=== PATIENT | female | born 1950 | race Caucasian/White ===

== ENCOUNTER 2017-06-08 10:34 | Observation (INO) | payer SELFPAY ==
[2017-06-08] MEDS ORDERED: VALIUM PO ONE (11:37)
[2017-06-08 12:12] LABS: BASOPHILS # (AUTO) 0.1 X10^3/uL (0.0-0.1); BASOPHILS % (AUTO) 1.2 % (0.2-1.0); EOSINOPHILS # (AUTO) 0.3 x10^3/uL (0.0-0.2); EOSINOPHILS % (AUTO) 3.6 % (0.9-2.9); HEMATOCRIT 37.7 % (36.0-47.0); HEMOGLOBIN 12.7 g/dL (12.0-16.0); LYMPHOCYTES # (AUTO) 1.6 X10^3/uL (1.3-2.9); LYMPHOCYTES % (AUTO) 21.4 % (21.0-51.0); MEAN CORPUSCULAR HEMOGLOBIN 31.8 pg (27.0-34.0); MEAN CORPUSCULAR HGB CONC 33.7 g/dL (33.0-35.0); MEAN CORPUSCULAR VOLUME 94.4 fL (80.0-100.0); MEAN PLATELET VOLUME 8.8 fL (7.4-11.0); MONOCYTES # (AUTO) 0.7 x10^3/uL (0.3-0.8); MONOCYTES % (AUTO) 10.2 % (0.0-13.0); NEUTROPHILS # (AUTO) 4.6 x10^3/uL (2.2-4.8); NEUTROPHILS % (AUTO) 63.6 % (42.0-75.0); PLATELET COUNT 232 X10^3/uL (150.0-450.0); RED CELL DISTRIBUTION WIDTH 12.8 % (11.6-16.5); WHITE BLOOD COUNT 7.3 X10^3/uL (3.6-10.0)
[2017-06-08 12:26] VITALS: BMI 27.1
[2017-06-08 12:26] LABS: ALANINE AMINOTRANSFERASE 15 Units/L (12-78); ALBUMIN 3.6 g/dL (3.4-5.0); ALKALINE PHOSPHATASE 89 Units/L (46-116); ASPARTATE AMINO TRANSFERASE 20 Units/L (15-37); BLOOD UREA NITROGEN 16 mg/dL (7-18); CALCIUM 8.4 mg/dL (8.5-10.1); CARBON DIOXIDE 30.7 mmol/L (21-32); CHLORIDE 107 mmol/L (98-107); CREATININE 1.09 mg/dL (0.55-1.02); GLUCOSE 91 mg/dL (65-99); SODIUM 141 mmol/L (136-145); eGFR BLACK RACES > 60 (>60); eGFR NON BLACK RACES 54 (>60)
--- NOTE | 2017-06-08 12:40 | DR.H&P ---
H&P - History & Physical for Day of: H&P Date: 06/08/17 - Chief Complaint Chief Complaint: LLE NUMBNESS, CANNOT WALK - Allergies Allergies/Adverse Reactions: Allergies Allergy/AdvReac Type Severity Reaction Status Date / Time codeine Allergy Verified 06/08/17 11:33 meperidine [From Demerol] Allergy Verified 06/08/17 11:33 - History of Present Illness History of Present Illness: 66 WF DIRECT ADMIT FROM DR RIBEIRO OFFICE WITH CO LLE NUMBNESS, PT CO INTRACTABLE LOWER BACK PAIN, PT HAS CARLO "SCIATICA" RECEIVED STEROID AND PAIN SHOT 1 WEEK AGO WITHOUT IMPROVEMENT IN PAIN AND HAS HAD ONSET OF NUMBNESS. PT HAS PMH OF A FIB, ON AMIODERONE AND KIM. PLAN TO ADMIT FOR MRI L SPINE FURTHER EVALUATION OF PARESTHESIA. WILL ADMINISTER IV STEROIDS, CARDIAC MONITORING DUE TO HX OF AFIB, TACHYCARDIA WITH STEROID INJECTIONS. - Past Medical History Past Medical History: Anxiety, Arthritis, Hypertension Additional Medical History: A FIB - Past Surgical History Surgical History: Hysterectomy, Tonsillectomy, Other - Family History Family Medical History: Cancer, [place], Heart Failure, Hypertension - Social History Does patient currently use any type of tobacco product: No Have you used tobacco products in the last 12 months: No Type of Tobacco Use: None Does any household member use tobacco: No Alcohol Use: Occasionally Drug Use: Prescription Drugs - Review of Systems Constitutional: Weakness Eyes: No Symptoms Reported ENT: No Symptoms Reported Respiratory: No Symptoms Reported Cardiovascular: Palpitations Gastrointestinal: No Symptoms Reported Genitourinary: No Symptoms Reported Musculoskeletal: Back Pain, Leg Pain Skin: No Symptoms Reported Neurological: Numbness (LLE) - Physical Exam Vital Signs: Temperature 98.2 F Pulse Rate [Left Brachial] 67 Respiratory Rate 20 Blood Pressure [Left Arm] 155/72 Blood Pressure 130/77 O2 Sat by Pulse Oximetry 98 Oriented: Normal Eyes: Normal Ear: Normal Nose: Normal Throat: Normal Respiratory: Clear Throughout Cardiovascular: Normal : Normal Auscultation: Bowel Sounds: Normal Palpation: Normal Tenderness: Normal Skin: Normal Musculoskeletal: Back:Thoracic, Back:Lumbar, Motor Deficit, Sensory Deficit Mood Description: Calm Speech Pattern: Clear, Appropriate - Assessment/Plan (1) Lower extremity numbness Status: Acute Plan: ADMIT, L SPINE MRI, IV STEROIDS. PAIN CONTROL. EKG MONITORING, ADMISSION LABS CBC, CMP , SED RATE, CRP (2) Intractable low back pain Status: Acute (3) A-fib Qualifiers: Atrial fibrillation type: A Status: Acute
[2017-06-08] MEDS: NS 1000 ML 1,000 ML IV SCH (12:47)
[2017-06-08 12:56] LABS: ERYTHROCYTE SEDIMENTATION RATE 6 MM/HOUR (0-20)
[2017-06-08] MEDS: SOLU-Medrol 125 MG VIAL IVP SCH ×2 (13:52→22:22)
[2017-06-08] MEDS ORDERED: VALIUM PO SCH (14:00)
[2017-06-08] MEDS: PERCOCET TAB 5/325 MG PO PRN (22:21)
[2017-06-09] MEDS: SOLU-Medrol 125 MG VIAL IVP SCH ×2 (05:56→14:04)
[2017-06-09 09:22] VITALS: BP 127/66
--- NOTE | 2017-06-09 09:30 | MRI ---
MRI SPINE LUMBAR WITHOUT CONTRAST CLINICAL HISTORY: 66-year-old female with low back pain, numbness and tingling. COMPARISON: None. Technique: Multiplanar, multisequence MRI images of the lumbar spine were obtained without the admi nistration of contrast. FINDINGS: The most caudad, fully-formed intervertebral disc will be labeled L5-S1 for the purpose of this dictation. Straightening of the lumbar lordosis as imaged. Alignment is maintained. Vertebral body heights are preserved with mild loss of intervertebral disc height at L5-S1 and associated loss of disk signal. Vertebral marrow and remaining intervertebral disc signal is normal. Cord signal is normal. The conus medullaris is normal in signal characteristics and morphology and terminates at t he T12-L1 level. T11-T12: Imaged in the sagittal plane only without central canal or neural foraminal stenosis. T12-L1: No central canal or neural foraminal stenosis. L1-L2: Small symmetric disc bulge with mild facet hypertrophy and thickened ligamentum flavum withou t central canal or neural foraminal stenosis L2-L3: Symmetric disc bulge with moderate facet hypertrophy and thickened ligamentum flavum without significant central canal or neural foraminal stenosis. L3-L4: Large symmetric disc bulge with linear hyper intensity within the annular fibers and a right central and right lateral distribution consistent with fissure. Mild facet hypertrophy and thickened ligamentum flavum without central canal or neural foraminal stenosis. Disc bulge contacts the ventr al aspect of the exiting left L3 nerve root. L4-L5: Large symmetric disc bulge with moderate to severe facet hypertrophy and thickened ligamentum flavum with fluid in the facet joints. Is no central canal or neural foraminal stenosis. L5-S1: Symmetric disc bulge with mild facet hypertrophy without central canal or neural foraminal st enosis. T1 hypo intense and T2 hyperintense 4.4 x 5.1 cm left renal cystic lesion with the remaining paraspi nous soft tissues unremarkable. IMPRESSION: 1. 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 2. See level by level descriptions above. 3. Likely simple large left renal cyst, further evaluation with renal ultrasound or renal protocol C T may be of benefit in the appropriate clinical setting. Reported By:
[2017-06-09] MEDS: PERCOCET TAB 5/325 MG PO PRN (11:57)
[2017-06-09] MEDS ORDERED: TORADOL 30 MG VIAL IVP ONE (12:24)
[2017-06-09] MEDS ORDERED: FLEXERIL TAB 10 MG PO PRN (12:24)
--- NOTE | 2017-06-09 13:50 | US ---
HISTORY: Renal cystic lesions. Study: Renal ultrasound Comparison: None. Technique: Multiple kraft scale and color flow Doppler images of the kidneys were obtained. The michele on of the urinary bladder was evaluated as well. Findings: The right kidney is normal in echotexture and size. The right kidney measures 75 x 50 x 67 millimete rs. No focal mass, hydronephrosis, or stones identified. The left kidney is slightly echogenic in appearance. There is a mildly complicated, probably protein aceous, left-sided renal cystic lesion/cyst which measures 48 x 41 millimeters. This can be followed up sonographically in 3 months to ensure stability. No other renal sonographic abnormalities are ap preciated. No perinephric fluid collection is seen bilaterally. The region of the urinary bladder is grossly unremarkable. IMPRESSION: Mildly complicated, probably proteinaceous, left-sided renal cystic lesion/cyst which me asures 48 x 41 millimeters with internal echoes/debris. This can be followed up sonographically in 3 months to ensure stability. No other renal sonographic abnormalities are appreciated. No perinephri c fluid collection is seen bilaterally. Reported By:
[2017-06-09] MEDS: NS 1000 ML 1,000 ML IV SCH (14:04)
== END 2017-06-09 14:20 | disposition home or self-care (01) ==
LOC: MED/SURG 10:34
PROVIDERS: ADMIT Internal Medicine; ATTEND Internal Medicine
DX: R20.0 Anesthesia of skin (principal); M54.5 Low back pain; M25.559 Pain in unspecified hip; M13.89 Other specified arthritis, multiple sites; I48.91 Unspecified atrial fibrillation; N28.1 Cyst of kidney, acquired; F41.8 Other specified anxiety disorders; M51.36 Other intervertebral disc degeneration, lumbar region; R79.82 Elevated C-reactive protein (CRP); I10 Essential (primary) hypertension
CPT/HCPCS: 36415; 72148; 76770; 80053; 85025; 85652; 86140; 93005; 93010; A4222; G0378; J1885; J2930

== ENCOUNTER 2017-12-14 09:03 | Day surgery (SDC) | payer OTHER ==
[2017-12-14] MEDS ORDERED: NS 500 ML IV 500 ML IV ONE (09:35)
[2017-12-14] MEDS ORDERED: TETRACAINE 0.5% OPHTH 1 DOSE AFFEYE ONE ×4 (09:45→12:16)
[2017-12-14] MEDS ORDERED: VIGAMOX 0.5% OPHTH 1 DOSE AFFEYE ONE ×5 (09:50→12:26)
[2017-12-14] MEDS ORDERED: PROLENSA OPHTH 1 DOSE AFFEYE ONE (10:01)
[2017-12-14] MEDS ORDERED: ALPHAGAN-P OPHTH 1 DOSE AFFEYE ONE (10:02)
[2017-12-14] MEDS ORDERED: MYDRIACIL OPHTH 1 DOSE AFFEYE ONE ×3 (10:03→10:05)
[2017-12-14] MEDS ORDERED: AK-DILATE 2.5% OPHTH 1 DOSE OP ONE ×3 (10:03→10:05)
[2017-12-14] MEDS ORDERED: CYCLOGYL 1% OPHTH 1 DOSE OP ONE ×3 (10:03→10:05)
[2017-12-14] MEDS ORDERED: BETADINE OPHTH SOLN 5% EACHEYE ONE (12:08)
[2017-12-14] MEDS ORDERED: XYLOCAINE-MPF 1% IJ ONE ×2 (12:10→12:16)
[2017-12-14] MEDS ORDERED: ADRENALINE CHL INJ IJ ONE ×2 (12:10→12:16)
[2017-12-14] MEDS ORDERED: DUOVISC IO ONE ×2 (12:10→12:16)
[2017-12-14] MEDS ORDERED: BSS OPHTH (PLAIN) 500 ML with VANCOMYCIN HCL 500 MG VIAL 25 MG, ADRENALINE CHL INJ 1 MG IR ONE ×6 (12:11)
[2017-12-14 12:43] VITALS: BP 115/65
[2017-12-14] MEDS ORDERED: VERSED ONE (13:59)
== END 2017-12-14 12:48 | disposition home or self-care (01) ==
LOC: SURG1 09:03
PROVIDERS: ATTEND Ophthalmology
PROC: 08RK3JZ Replacement of Left Lens with Synthetic Substitute, Percutaneous Approach (ICD-10-PCS; principal; 2017-12-14 18:15)
PROC: 08DK3ZZ Extraction of Left Lens, Percutaneous Approach (ICD-10-PCS; principal; 2017-12-14 18:15)
DX: H25.12 Age-related nuclear cataract, left eye (principal); H25.012 Cortical age-related cataract, left eye
CPT/HCPCS: A4217; J0170; J2250; J3370

== ENCOUNTER 2017-12-21 13:13 | Day surgery (SDC) | payer OTHER ==
[~2017-12-21 13:13] MED LIST: VERSED ONE
[2017-12-21] MEDS ORDERED: NS 500 ML IV 500 ML IV ONE (13:20)
[2017-12-21] MEDS ORDERED: TETRACAINE 0.5% OPHTH 1 DOSE AFFEYE ONE ×3 (13:32→14:46)
[2017-12-21] MEDS ORDERED: VIGAMOX 0.5% OPHTH 1 DOSE AFFEYE ONE ×5 (13:35→14:57)
[2017-12-21] MEDS ORDERED: PROLENSA OPHTH 1 DOSE AFFEYE ONE (13:46)
[2017-12-21] MEDS ORDERED: ALPHAGAN-P OPHTH 1 DOSE AFFEYE ONE (13:47)
[2017-12-21] MEDS ORDERED: CYCLOGYL 1% OPHTH 1 DOSE OP ONE ×4 (13:48→13:53)
[2017-12-21] MEDS ORDERED: AK-DILATE 2.5% OPHTH 1 DOSE OP ONE ×4 (13:48→13:53)
[2017-12-21] MEDS ORDERED: MYDRIACIL OPHTH 1 DOSE AFFEYE ONE ×4 (13:48→13:53)
[2017-12-21] MEDS ORDERED: BETADINE OPHTH SOLN 5% EACHEYE ONE (14:43)
[2017-12-21] MEDS ORDERED: BSS OPHTH (PLAIN) 500 ML with VANCOMYCIN HCL 500 MG VIAL 25 MG, ADRENALINE CHL INJ 1 MG IR ONE ×3 (14:46)
[2017-12-21] MEDS ORDERED: XYLOCAINE-MPF 1% IJ ONE (14:54)
[2017-12-21] MEDS ORDERED: ADRENALINE CHL INJ IJ ONE (14:54)
[2017-12-21] MEDS ORDERED: DUOVISC IO ONE (14:54)
[2017-12-21 17:26] VITALS: BP 152/72
== END 2017-12-21 15:25 | disposition home or self-care (01) ==
LOC: SURG1 13:13
PROVIDERS: ATTEND Ophthalmology
PROC: 08RJ3JZ Replacement of Right Lens with Synthetic Substitute, Percutaneous Approach (ICD-10-PCS; principal; 2017-12-21 19:00)
PROC: 08DJ3ZZ Extraction of Right Lens, Percutaneous Approach (ICD-10-PCS; principal; 2017-12-21 19:00)
DX: H25.11 Age-related nuclear cataract, right eye (principal); H25.011 Cortical age-related cataract, right eye
CPT/HCPCS: A4217; J0170; J2250; J3370